=== PATIENT | female | born 1990 | race African-American/Black ===

== ENCOUNTER 2024-03-18 11:17 | Emergency (ER) | payer OTHER, SELFPAY ==
[2024-03-18 11:21] VITALS: BP 134/96
--- NOTE | 2024-03-18 11:32 | ED.CVA ---
ED Provider Triage
<Roselyn Gutierrez PA-C - Last Filed: 03/18/24 19:05>
-
Patient seen by provider in Triage?: Seen in Triage
Attestation: A medical screening examination has been initiated by a qualified medical provider. Based on the assessment performed at this time, it has been determined that an emergent medical condition may exist and the patient has been informed
that further medical evaluation and possible additional diagnostic testing may be needed.
HPI: 33yoF here with dizziness and 'feeling out of it.' Started at 6am while driving to work. Also c/o headache. Having URI symptoms x 1 week. Hx of anxiety, no other PMH. No neuro deficits on prehospital assessment.
GENERAL: Alert , in no apparent distress
EYE: No visual abnormalities.
NECK: Trachea midline
ENT: No visible abnormalities.
LUNGS: No acute respiratory distress
NEUROLOGICAL: Alert and oriented
SKIN: Skin intact. No visible changes.
MUSCULOSKELETAL: Moving extremities normally
PSYCH: Normal and appropriate interaction.
This is a medical evaluation conducted in person to initiate diagnostic evaluation and provide initial therapeutics. Please see further documentation by the treating clinician.
Cardiac labs, HCG, EKG, COVID/flu swab, and CT head ordered.
History of Present Illness
<Roselny Gutierrez PA-C - Last Filed: 03/18/24 19:05>
General
Chief Complaint: CVA/TIA Symptoms
Time Seen by Provider: 03/18/24 14:22
Review of Systems
<Neftali Brown DO - Last Filed: 03/18/24 15:46>
Review of Systems
All Other Systems: Not applicable
Constitutional: Denies fever or fatigue
EENT: Reports runny nose and other (Sinus congestion)
ABD/GI: Reports no symptoms
: Reports no symptoms
Musculoskeletal: Reports no symptoms
Neurological: Reports dizzy, headache and numbness
Phy Exam
<Neftali Brown DO - Last Filed: 03/18/24 15:46>
Physical Exam
Physical Exam:
Physical Exam
General: no apparent distress, not acutely ill
Neck: Stuffy nose
Heart: s1/s2 regular rate and rhythm, no murmur. equal radial pulses.
Lungs: no acute respiratory distress. clear bilaterally
Abdomen: Nontender
Neuro: alert and oriented. no focal neurological deficits normal [id number] bilaterally clear speech no facial palsy muscle tight 5 out of 5
Skin: no rash
Psychiatric: well kept. interactive and cooperative
Extremities: no edema.
Course
<Roselyn Gutierrez PA-C - Last Filed: 03/18/24 19:05>
Orders/Labs/Results
Orders:
Orders
03/18/24 11:25
EKG [Electrocardiogram (*1)] Urgent
Reason for Study: Vertigo / Dizzy
CT Head W/o Iv Contrast Urgent
Comment:
Reason For Exam: dizzy/numbness
EKG- Treatment ONCE
Test Result ONCE
03/18/24 11:39
COVID-19 Antigen Urgent
Source: Nasal Swab
Complete Blood Count/With Diff Urgent
Comprehensive Metabolic Panel Urgent
HCG, Serum Qualitative Screen Urgent
Influenza A+B Rapid Molecular Urgent
SHAUNA Source: Nasal Swab
Specimen Description:
03/18/24 14:32
Acetaminophen [Tylenol] 650 mg PO NOW STA
Ibuprofen [Motrin] 600 mg PO NOW STA
Abnormal Lab Results
03/18/24
11:39
Neutrophils % 38.7 L %
(42.2-75.2)
Monocytes % 11.0 H %
(1.7-9.3)
Carbon Dioxide 18 L mmol/L
(22-30)
BUN 6 L mg/dl
(7-17)
Calcium 10.3 H mg/dl
(8.4-10.2)
Total Protein 8.3 H g/dl
(6.3-8.2)
03/18/24 11:39
03/18/24 11:39
Vital Signs
Initial and Last Documented VS:
Initial Vital Signs
Temp Pulse Resp BP Pulse Ox
97.6 F 87 17 134/96 100
03/18/24 11:21 03/18/24 11:21 03/18/24 11:21 03/18/24 11:21 03/18/24 11:21
Last Documented Vital Signs
Temp Pulse Resp BP Pulse Ox
97.6 F 81 16 137/89 98
03/18/24 11:21 03/18/24 15:59 03/18/24 15:59 03/18/24 15:59 03/18/24 15:59
<Neftali Brown, DO - Last Filed: 03/18/24 15:46>
Orders/Labs/Results
Orders:
Orders
03/18/24 11:25
EKG [Electrocardiogram (*1)] Urgent
Reason for Study: Vertigo / Dizzy
CT Head W/o Iv Contrast Urgent
Comment:
Reason For Exam: dizzy/numbness
EKG- Treatment ONCE
Test Result ONCE
03/18/24 11:39
COVID-19 Antigen Urgent
Source: Nasal Swab
Complete Blood Count/With Diff Urgent
Comprehensive Metabolic Panel Urgent
HCG, Serum Qualitative Screen Urgent
Influenza A+B Rapid Molecular Urgent
SHAUNA Source: Nasal Swab
Specimen Description:
03/18/24 14:32
Acetaminophen [Tylenol] 650 mg PO NOW STA
Ibuprofen [Motrin] 600 mg PO NOW STA
Abnormal Lab Results
03/18/24
11:39
Neutrophils % 38.7 L %
(42.2-75.2)
Monocytes % 11.0 H %
(1.7-9.3)
Carbon Dioxide 18 L mmol/L
(22-30)
BUN 6 L mg/dl
(7-17)
Calcium 10.3 H mg/dl
(8.4-10.2)
Total Protein 8.3 H g/dl
(6.3-8.2)
03/18/24 11:39
03/18/24 11:39
Vital Signs
Initial and Last Documented VS:
Initial Vital Signs
Temp Pulse Resp BP Pulse Ox
97.6 F 87 17 134/96 100
03/18/24 11:21 03/18/24 11:21 03/18/24 11:21 03/18/24 11:21 03/18/24 11:21
Last Documented Vital Signs
Temp Pulse Resp BP Pulse Ox
97.6 F 81 16 137/89 98
03/18/24 11:21 03/18/24 15:59 03/18/24 15:59 03/18/24 15:59 03/18/24 15:59
<Neftali Brown DO - Last Filed: 03/18/24 15:46>
MDM/Problems Addressed
Differential Diagnosis Includes:
URI sinusitis complicated migraine doubt mass or stroke
MDM/Problems Addressed:
Headache stuffy nose right arm numbness
<Neftali Brown, DO - Last Filed: 03/18/24 15:46>
*Radiology
Radiology exam reviewed: radiology read reviewed
*Pulse Oximetry
Patient hypoxic: no
*Director Of Business Systems Interpretation
Rate: normal
Interpretation: normal
Heart Rate: 78
Rhythm: sinus
*Critical Care Note
Total Time (30-74mins, 75-104mins- exclusive of procedures): Not Applicable
<Neftali Brown DO - Last Filed: 03/18/24 15:46>
Update Note
Update Note:
Update, labs are noted CT noted for nonfocal neurologic exam states she woke up today feeling bit off she had recent URI suspect this is migrainous related to sinus congestion, workup noted, she does have an appointment with her PCP tomorrow in the
[facility] system will give her a copy of all her labs CAT scans to follow-up there
3:45 PM patient feeling better, nonfocal neurologic exam
ED Attending Note
<Roselyn Gutierrez PA-C - Last Filed: 03/18/24 19:05>
-
Portions of this chart may have been created with voice recognition software.� Occasional wrong word or��sound alike� substitutions may have occurred due to the inherent limitations of voice recognition software.
Discharge Plan
Departure
Patient Disposition: Home (Routine Discharge)
Date of Disposition: 03/18/24
Time of Disposition: 15:44
Patient with high blood pressure during this ER visit?: No
Condition: Good
Discharge Problem:
Headache
Instructions: Paresthesia (DC), Headaches in adults
Prescriptions:
New
ibuprofen 600 mg tablet
600 mg PO Q6H PRN (Reason: Pain) Qty: 20 0RF
Referrals:
Rachel Washington MD [Family Provider] - Keep scheduled appt
Activity Restrictions/Additional Instructions:
Follow-up with your primary care provider tomorrow as scheduled
Return to the closest ER if worsening symptoms
Interventions
Interventions:
*Risk Screen - Suicide Last Done: 03/18/24 11:24
*General Assessment Last Done: 03/18/24 11:24
*Neglect/Abuse Screening Last Done: 03/18/24 11:24
ED- Fall Risk Assessment Last Done: 03/18/24 16:10
*ED COVID-19 Vaccine History Last Done: 03/18/24 11:24
*Nursing Disposition Last Done: 03/18/24 16:10
ED- Pulmonary Assessment Last Done: 03/18/24 15:59
ED- Neurological Assessment Last Done: 03/18/24 15:59
ED- Cardiac Assessment Last Done: 03/18/24 15:59
ED Swallowing Screen Last Done: 03/18/24 16:10
Discharge Date and Time
Discharge Date/Time: 03/18/24 16:10
Print Language: [id number]
[2024-03-18 12:09] LABS: % Basophils 1.2 % (0-2); % Eosinophils 4.2 % (0-6); % Immature Granulocytes 0.4 % (0-0.5); % Lymphocytes 44.5 % (20.5-51.1); % Neutrophils 38.7 % (42.2-75.2); Absolute Basophils 0.1 10^3/uL (0-0.2); Absolute Eosinophils 0.2 10^3/uL (0-0.7); Absolute Lymphocytes 2.2 10^3/uL (1.2-3.4); Absolute Monocytes 0.6 10^3/uL (0.1-0.6); Absolute Neutrophils 1.9 10^3/uL (1.4-6.5); Hematocrit 41.5 % (37.0-47.0); Hemoglobin 14.3 g/dL (12.0-16.0); Mean Corp Hgb Conc. 34.5 g/dL (33.0-37.0); Mean Corpuscular Hgb 30.9 pg (27.0-31.0); Mean Corpuscular Volume 89.6 fL (81.0-99.0); Mean Platelet Volume 9.3 fL (7.4-10.4); Nucleated Red Blood Cells % 0 %; Platelet Count 319 10^3/uL (130-400); Red Blood Cell Count 4.63 10^6/uL (4.20-5.40); Red Cell Dist. Width 12.5 % (11.5-14.5)
[2024-03-18 12:30] LABS: COVID-19 Antigen Negative (Negative)
[2024-03-18 12:32] LABS: HCG, Serum Qualitative Screen Negative
[2024-03-18 12:35] LABS: ALT (SGPT) 21 U/L (0-35); AST (SGOT) 29 U/L (14-36); Alkaline Phosphatase 75 U/L (38-126); Blood Urea Nitrogen 6 mg/dl (7-17); Calcium 10.3 mg/dl (8.4-10.2); Carbon Dioxide 18 mmol/L (22-30); Chloride 103 mmol/L (98-107); Glucose 89 mg/dl (70-99); Potassium 4.1 mmol/L (3.5-5.1); Sodium 137 mmol/L (135-145); Total Bilirubin 0.4 mg/dl (0.2-1.3); Total Protein 8.3 g/dl (6.3-8.2); eGFR > 60.00
[2024-03-18 13:43] VITALS: BP 132/99
[2024-03-18] MEDS: MOTRIN 600 MG PO (15:14)
[2024-03-18] MEDS: TYLENOL 650 MG PO (15:14)
[2024-03-18 15:59] VITALS: BP 137/89
== END 2024-03-18 16:10 | disposition home or self-care (01) ==
LOC: EMR 11:17
PROVIDERS: Emergency Medicine; Physician Assistant; EMERGENCY PHYSICIAN Emergency Medicine; FAMILY PHYSICIAN Family Medicine
DX: R51.9 Headache, unspecified (principal); R42 Dizziness and giddiness; F41.9 Anxiety disorder, unspecified; R09.89 Other specified symptoms and signs involving the circulatory and respiratory systems; R20.0 Anesthesia of skin; Z11.52 Encounter for screening for COVID-19
CPT/HCPCS: 99284; 70450; 80053; 84703; 85025; 87502; 87811; 93005

== ENCOUNTER → 2024-05-26 14:20 | Outpatient (REF) | payer OTHER, SELFPAY ==
[2024-05-26 18:59] LABS: Rubella Positive
[2024-05-29 11:35] LABS: Mumps Virus IgG Positive; Rubeola (Measles) IgG Positive; Varicella Zoster IgG (VZV) Positive
== END ==
LOC: OHS 14:20
PROVIDERS: ATTENDING PHYSICIAN Nurse Practitioner Family
DX: Z23 Encounter for immunization (principal)
CPT/HCPCS: 36415; 86735; 86762; 86765; 86787